=== PATIENT | female | born 1965 | race Caucasian/White ===

== ENCOUNTER 2017-02-04 23:38 | Emergency (ER) | payer OTHER ==
[2017-02-05] MEDS ORDERED: HYDROmorphone HCL 1 MG/ML SYR ONE (00:29)
[2017-02-05] MEDS ORDERED: DIPHENHYDRAMINE 50 MG/ML VIAL ONE (00:29)
--- NOTE | 2017-02-05 00:54 | CT REPORT ---
HISTORY: Worsening headaches. COMPARISON: None. TECHNIQUE: Axial non-contrast images obtained from skull vertex through foramen magnum. Dose reduction technique was utilized. FINDINGS: There is no atrophy. There is no hemorrhage. There is no hydrocephalus. No mass lesion is identifi ed. De Paz white differentiation adequate, there is no infarction. No midline shift is identified. T he paranasal sinuses are clear. IMPRESSION: No acute intracranial abnormality. Final Electronic Signature: This report was electronically signed by Eli Church MD on 02/05/2017 12:52 AM. lisa /
--- NOTE | 2017-02-05 02:55 | ER PHYSICIAN DOCUMENTATION ---
Physician Documentation [facility] Name:Rose Healy Age:51 yrs Sex:Female :1965 Arrival Date:02/04/2017 Time:23:38 Bed4 Private MD:Yogi Gillespie ED, Tom Disposition: 02/06 03:00 Chart complete. tl1 Disposition: 02/05/17 01:03 Discharged to Home/Self Care. Impression: Acute Headache. - Condition is Good. - Discharge Instructions: HEADACHE, Unspecified. - Prescriptions for Lowell 5- 325 mg Oral - take 1 tablet by ORAL route every 6 hours As needed; 6 tablet. Zofran 4 mg Oral Tablet - take 1-2 tablet by ORAL route every 4-6 hours As needed; 10 tablet. - Medical Reconciliation form form. - Follow up: Yogi Gillespie MD; When: 4- 6 days; Reason: Recheck today's complaints. - Problem is new. - Symptoms have improved. HPI: 02/04 23:48 This 51 yrs old Female presents to ER via Walk In with complaints of Headache.tl1 02/05 00:17 She has had frequent headaches in the past, typically due to muscle tension in the neck tl1 or sinus headaches. This one is different. It first started this AM , was mild to moderate and responded mostly to advil. At about 8 pm tonight she noted the headache came on rapidly over 20 minutes or so, becoming severe 10/10, sharp, bifrontal and bi-occipital with mild nausea but no vomiting. No f/c/s. No trauma. No viral syndrome; she got over a cold about a week ago. She does have photophobia, but no visual changes. No gait or speech problems. No history of migraine headaches.. Historical: - Allergies: Erythromycin; - Home Meds: 1. Prilosec Oral 2. Valtrex Oral 3. Prozac Oral - PMHx: DEPRESSION; GERD; - PSHx: None; - Tetanus: < 10 years. - Ebola Screening: : Patient denies exposure to infectious person. Patient denies travel to an Ebola-affected area in the 21 days before illness onset. . - Immunization history: Flu Vaccine < 1 year. - Social history: Smoking status: Patient states was never smoker of tobacco. Patient uses alcohol occasionally. - Code Status:: Full code. ROS: 00:37 Neuro: Positive for headache. tl1 00:37 All other systems are negative. Exam: 00:37 Head/Face: Normocephalic, atraumatic. tl1 00:37 Constitutional: The patient appears alert, awake, well developed, well hydrated, well groomed, well nourished, in obvious distress, moderately distressed, in obvious pain, uncomfortable. 00:37 Eyes: Periorbital structures: appear normal, Pupils: equal, round, and reactive to light and accomodation, Extraocular movements: intact throughout, Conjunctiva: normal. 00:37 Neck: External neck: is normal, C-spine: vertebral tenderness, is not appreciated, ROM/movement: is normal, without pain, no meningismus, no nuchal rigidity, Bilateral mid cervical paraspinous tenderness and spasm. 00:37 Cardiovascular: Rate: normal, Rhythm: regular, Heart sounds: normal. 00:37 Respiratory: Respirations: normal, Breath sounds: are normal. 00:37 Abdomen/GI: Palpation: abdomen is soft and non-tender. 00:37 Skin: Exam negative for acute changes. 00:37 Neuro: Orientation: is normal, Mentation: is normal, Memory: is normal, Cranial nerves: grossly normal, Motor: moves all fours, strength is 5/5 in the right hand and left hand, Sensation: light touch sense is normal, Gait: is steady, at a normal pace, without difficulty, appropriate for age, Deep tendon reflexes are 3+ (brisk) in the right bicep, right tricep, right brachioradialis, right patellar, right Achilles, left bicep, left tricep, left brachioradialis, left patellar, left Achilles, bilateral brachioradialis, bicep, tricep and patellar and Achilles tendons. Vital Signs: 02/04 23:42 BP 140 / 92 RA Sitting (auto/reg); Pulse 83 RA; Resp 16 S; Temp 97.9(O); Pulse Ox 95% em3 on R/A; Weight 58.97 kg (R); Height 5 ft. 3 in. (160.02 cm) (R); Pain 10/10; 02/05 02:52 BP 118 / 80; Pulse 70; Resp 14; Pulse Ox 96% on R/A; Pain 0/10; lb 04/15 23:42 Body Mass Index 23.03 (58.97 kg, 160.02 cm) em3 MDM: 02/04 23:48 Patient medically screened. tl1 02/05 00:41 Differential diagnosis: cerebral abscess, cervical epidural bleed, intracerebral tl1 hemorrhage, subarachnoid bleed, subdural hematoma, tension headache, vasomotor headache. Data reviewed: vital signs, nurses notes, radiologic studies, CT scan, and as a result, I will discharge patient. Counseling: I had a detailed discussion with the patient and/or guardian regarding: the historical points, exam findings, and any diagnostic results supporting the discharge/admit diagnosis, radiology results, the need for outpatient follow up, to return to the emergency department if symptoms worsen or persist or if there are any questions or concerns that arise at home. Medication response: The patient's symptoms have improved, Dilaudid. Response to treatment: the patient's symptoms have markedly improved after treatment, and as a result, I will discharge patient. 02:30 ED course: She felt much better at the time of d/c with nearly complete resolution of tl1 her headache.. 02/05 00:56 Order name: CAT SCAN; HEAD W/O CON [id number]; Complete Time: 12:23 EDMS 02/06 12:19 Interpretation: NAD, see note. tl1 Dispensed Medications: 00:33 Drug: Dilaudid 1 mg; Route: IVP; Site: left antecubital; lb 01:11 Follow up: Response: Pain is decreased lb 00:34 Drug: Compazine 10 mg; Route: IVPB; Site: left antecubital; lb 01:11 Follow up: Response: Pain is decreased lb 00:34 Drug: Benadryl 25 mg; Route: IVP; Site: left antecubital; lb 01:11 Follow up: Response: Pain is decreased lb 00:34 Drug: NS 0.9% 1000 ml; Route: IV; Rate: bolus; Site: left antecubital; lb 02:53 Follow up: IV Status: Completed infusion; IV Intake: 1000ml lb Signatures: Edmond Holland MD MD tl1 Shanika Cat lb
--- NOTE | 2017-02-05 02:55 | ER NURSING DOCUMENTATION ---
Nurse's Notes [facility] Name:Rose Healy Age:51 yrs Sex:Female :1965 Arrival Date:02/04/2017 Time:23:38 Bed4 Private MD:Yogi Gillespie Diagnosis:Acute Headache Presentation: 02/04 23:46 Presenting complaint: Patient states: headache on and off for 6 days. sharp, wraps lb around her head, c/o photophobia. Transition of care: Home. Notified ED Physician of Dr. Holland notified. 23:46 Acuity: JOESPH 3 lb 23:46 Method Of Arrival: Walk In Triage Assessment: 23:49 Headache History: The patient has had previous headaches and this one is similar to lb previous episodes. General: Appears uncomfortable, Behavior is appropriate for age. Pain: Complains of pain in forehead, left restoration, left side of the back of head, left temporal area, left occipital area, right side of the back of head, right temporal area, right occipital area and face Pain does not radiate. Pain currently is 10 out of 10 on a pain scale. Pain began 6 days Also complains of photophobia. Neuro: No deficits noted. Historical: - Allergies: Erythromycin; - Home Meds: 1. Prilosec Oral 2. Valtrex Oral 3. Prozac Oral - PMHx: DEPRESSION; GERD; - PSHx: None; - Tetanus: < 10 years. - Ebola Screening: : Patient denies exposure to infectious person. Patient denies travel to an Ebola-affected area in the 21 days before illness onset. . - Immunization history: Flu Vaccine < 1 year. - Social history: Smoking status: Patient states was never smoker of tobacco. Patient uses alcohol occasionally. - Code Status:: Full code. Screenin:51 Infectious Disease Risk None. Abuse screen: Denies threats or abuse. Denies injuries lb from another. Nutritional screening: No deficits noted. Assessment: 23:51 See Triage Assessment done by same RN. Pain: Complains of pain in face Pain does not lb radiate. Pain currently is 10 out of 10 on a pain scale. Vital Signs: 23:42 BP 140 / 92 RA Sitting (auto/reg); Pulse 83 RA; Resp 16 S; Temp 97.9(O); Pulse Ox 95% em3 on R/A; Weight 58.97 kg (R); Height 5 ft. 3 in. (160.02 cm) (R); Pain 10/10; 02/05 02:52 BP 118 / 80; Pulse 70; Resp 14; Pulse Ox 96% on R/A; Pain 0/10; lb 02/04 23:42 Body Mass Index 23.03 (58.97 kg, 160.02 cm) em3 ED Course: 02/04 23:38 Patient arrived in ED. em3 23:45 Shanika Cat is Primary Nurse. lb 23:45 Valuables Remains with patient Patient has correct armband on for positive em3 identification. Placed in gown. Bed in low position. Call light in reach. Side rails up X 1. 23:46 Triage completed. lb 23:48 Edmond Holland MD is Attending Physician. tl1 23:49 Yogi Gillespie MD is Private Physician. em3 02/05 00:27 Labs drawn. By marketing project manager Held in ED. Inserted saline lock: 20 gauge in left antecubital em3 area and blood collected. 00:[address] pm1 00:[address] pm1 00:58 Yogi Gillespie MD is Referral Physician. tl1 Administered Medications: 00:33 Drug: Dilaudid 1 mg; Route: IVP; Site: left antecubital; lb 01:11 Follow up: Response: Pain is decreased lb 00:34 Drug: Compazine 10 mg; Route: IVPB; Site: left antecubital; lb 01:11 Follow up: Response: Pain is decreased lb 00:34 Drug: Benadryl 25 mg; Route: IVP; Site: left antecubital; lb 01:11 Follow up: Response: Pain is decreased lb 00:34 Drug: NS 0.9% 1000 ml; Route: IV; Rate: bolus; Site: left antecubital; lb 02:53 Follow up: IV Status: Completed infusion; IV Intake: 1000ml lb Intake: 02:53 IV: 1000ml; Total: 1000ml. lb 02:54 IV: 1000ml (NS); Total: 2000ml. lb Outcome: 01:03 Discharge ordered by . tl1 02:52 Discharged to home ambulatory. lb 02:52 Condition: good 02:52 Discharge Assessment: Patient awake, alert and oriented x 3. No cognitive and/or functional deficits noted. Patient verbalized understanding of disposition instructions. 02:52 Instructed on discharge instructions, follow up and referral plans. no drinking with medication, no driving heavy equipment. 02:52 IV D/Poncho 02:54 Patient left the ED. eloisa Signatures: Jocelyn Mujica pm1 Haseeb Garcia em3 Edmond Holland MD MD tl1 Shanika Cat
== END 2017-02-05 02:55 | disposition home or self-care (01) ==
LOC: ER 23:38
DX: R51 Headache (principal); R11.0 Nausea; H53.19 Other subjective visual disturbances; Z79.899 Other long term (current) drug therapy
CPT/HCPCS: 70450; 96361; 96374; 96375; 99284; J1170; J1200